=== PATIENT | female | born 1995 | race Caucasian/White ===

== ENCOUNTER 2018-12-24 22:37 | Emergency (ER) | payer OTHER ==
[~2018-12-24] VITALS: Ht 162.6 cm; Wt 61.4 kg
[2018-12-24 22:46] VITALS: BP 142/90; TEMP 97.8
[2018-12-25 00:54] VITALS: PULSE 89
== END 2018-12-25 00:52 | disposition home or self-care (01) ==
LOC: COL.ER 22:37
DX: S61.217A Laceration without foreign body of left little finger without damage to nail, initial encounter (principal); J45.909 Unspecified asthma, uncomplicated; W26.0XXA Contact with knife, initial encounter; Y92.59 Other trade areas as the place of occurrence of the external cause

== ENCOUNTER 2019-01-03 13:47 | Emergency (ER) | payer OTHER ==
[2019-01-03 14:07] VITALS: BP 128/87; PULSE 79; TEMP 98.4
== END 2019-01-03 14:39 | disposition home or self-care (01) ==
LOC: COL.ER 13:47
DX: S61.210D Laceration without foreign body of right index finger without damage to nail, subsequent encounter (principal); X58.XXXD Exposure to other specified factors, subsequent encounter